=== PATIENT | female | born 1940 | race Caucasian/White ===

== ENCOUNTER 2016-10-25 07:52 | Inpatient (IN) | payer OTHER ==
[2016-10-19 13:47] VITALS: BMI 30.2
[2016-10-25] MEDS ORDERED: ROPIVICAINE 0.2%/MORPH PF/KETOROLAC - 51ML DISP.SYRINGE IA ONE ×2 (08:25→10:36)
[2016-10-25] MEDS ORDERED: CEFAZOLIN 2 GM in DEXTROSE 5%-WATER - 50 ML IVPB ONE (08:25)
[2016-10-25] MEDS ORDERED: TRANEXAMIC ACID 1000 MG/10 ML VIAL IVPUSH ONE ×2 (08:25→16:00)
[2016-10-25] MEDS: GABAPENTIN 300 MG CAPSULE (FP) PO ONE ×2 (09:00→16:10)
[2016-10-25] MEDS: CELECOXIB 200 MG CAPSULE PO ONE ×2 (09:00→16:10)
[2016-10-25] MEDS ORDERED: SODIUM CHLORIDE 0.9% P/F 10 ML VIAL IJ ONE (09:35)
[2016-10-25] MEDS ORDERED: ROPIVACAINE HCL 0.5% 30ML VIAL ONE (09:35)
[2016-10-25] MEDS ORDERED: MIDAZOLAM HCL 2 MG/2 ML SINGLE DOSE VIAL ONE (09:35)
[2016-10-25] MEDS ORDERED: DEXAMETHASONE SOD PHOSPHATE/PF 10 MG/ML SDV ONE (09:35)
[2016-10-25] MEDS ORDERED: BUPIVACAINE HCL/PF 0.5% (5MG/ML) 10 ML VIAL ONE (10:34)
[2016-10-25] MEDS ORDERED: TRANEXAMIC ACID 1000 MG/10 ML VIAL ONE ×3 (10:35→13:00)
[2016-10-25] MEDS ORDERED: VANCOMYCIN 1,000 MG VIAL (RESTRICTED TO ID ONLY) ONE (10:35)
[2016-10-25] MEDS ORDERED: PROPOFOL 20 ML ONE ×2 (10:37)
[2016-10-25] MEDS ORDERED: ONDANSETRON 4 MG/2 ML VIAL ONE (11:21)
[2016-10-25] MEDS ORDERED: DEXAMETHASONE SOD PHOSPHATE 4 MG/1 ML VIAL ONE (11:21)
[2016-10-25] MEDS ORDERED: ceFAZolin SODIUM 1 GM VIAL ONE ×2 (11:21→13:00)
[2016-10-25] MEDS ORDERED: ONDANSETRON 4 MG/2 ML VIAL IVPB PRN (13:55)
[2016-10-25] MEDS ORDERED: MAGNESIUM HYDROX 2400MG/30ML ORAL SUSPENSION 30 ML CUP PO PRN (13:55)
[2016-10-25] MEDS ORDERED: MAG HYDROX/AL HYDROX/SIMETH 30 ML UNIT-DOSE CUP PO PRN (13:55)
[2016-10-25] MEDS ORDERED: diazePAM 5 MG TABLET PO PRN (13:58)
[2016-10-25] MEDS ORDERED: LACTATED RINGERS SOLUTION 1,000 ML IV SCH ×2 (14:00→14:15)
[2016-10-25] MEDS ORDERED: ACETAMINOPHEN 325 MG TABLET (FP) ONE (14:13)
[2016-10-25] MEDS ORDERED: ROPIVACAINE 0.2% 400ML 400 ML ML NR ONE (14:15)
[2016-10-25] MEDS ORDERED: ONDANSETRON 4 MG/2 ML VIAL IVPUSH PRN (14:15)
[2016-10-25] MEDS ORDERED: oxyCODONE HCL 5 MG TABLET PO PRN (14:18)
[2016-10-25] MEDS: ACETAMINOPHEN 325 MG TABLET (FP) PO SCH ×3 (14:45→20:02)
[2016-10-25] MEDS: FERROUS SO4 325 MG TABLET (FP) PO SCH (18:35)
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
[2016-10-25] MEDS: CEFAZOLIN 2 GM/D5W 50 ML IVPB SCH (20:03)
[2016-10-25] MEDS: SENNOSIDES/DOCUSATE COMBO (SENNA PLUS) TABLET (UD) PO SCH (22:15)
[2016-10-25] MEDS: ASCORBIC ACID 500 MG TABLET (FP) PO SCH (22:15)
[2016-10-25] MEDS: GABAPENTIN 300 MG CAPSULE (FP) PO SCH (22:15)
[2016-10-25] MEDS: oxyCODONE HCL 10 MG SUSTAINED ACTING TABLET PO SCH (22:15)
[2016-10-25] MEDS: oxyCODONE HCL 5 MG TABLET PO PRN (22:16)
[2016-10-26] MEDS: ACETAMINOPHEN 325 MG TABLET (FP) PO SCH ×3 (01:18→21:05)
[2016-10-26] MEDS: CEFAZOLIN 2 GM/D5W 50 ML IVPB SCH (04:36)
[2016-10-26] MEDS: oxyCODONE HCL 5 MG TABLET PO PRN (05:03)
[2016-10-26 08:13] LABS: MCH 32.5 pg (25.7-33.7); MCHC 33.1 g/dl (32.0-36.0); MEAN CELL VOLUME 98.1 fl (80-96); MEAN PLT VOLUME 9.4 fl (7.5-11.1); PLATELET COUNT 366 K/MM3 (134-434); RDW 13.6 % (11.6-15.6); WHITE BLOOD COUNT 15.1 K/mm3 (4.0-10.8)
[2016-10-26] MEDS: FERROUS SO4 325 MG TABLET (FP) PO SCH ×2 (08:28→16:52)
[2016-10-26 08:33] LABS: ANION GAP 7 (8-16); CALCIUM 8.8 mg/dl (8.4-10.2); CO2 25 mmol/L (22-28); CREATININE 0.8 mg/dl (0.6-1.3); GLUCOSE,RANDOM 136 mg/dl (74-106)
[2016-10-26] MEDS: RIVAROXABAN 10 MG TABLET PO SCH (10:15)
[2016-10-26] MEDS: CELECOXIB 200 MG CAPSULE PO SCH (10:16)
[2016-10-26] MEDS: DIGOXIN 0.125 MG TABLET (FP) PO SCH (10:16)
[2016-10-26] MEDS: GABAPENTIN 300 MG CAPSULE (FP) PO SCH ×2 (10:16→21:06)
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
[2016-10-26] MEDS: dilTIAZem HCL 30 MG TABLET (FP) PO SCH (10:18)
[2016-10-26] MEDS: oxyCODONE HCL 10 MG SUSTAINED ACTING TABLET PO SCH ×2 (10:18→21:06)
[2016-10-26] MEDS: ASCORBIC ACID 500 MG TABLET (FP) PO SCH ×2 (10:19→21:06)
[2016-10-26] MEDS: CHOLECALCIFEROL (VITAMIN D3) 1,000 UNIT TABLET (FP) PO SCH (10:19)
[2016-10-26] MEDS: ENALAPRIL MALEATE 5 MG TABLET (FP) PO SCH (10:19)
[2016-10-26] MEDS: PANTOPRAZOLE 40 MG TABLET (FP) PO SCH (10:19)
[2016-10-26] MEDS: SENNOSIDES/DOCUSATE COMBO (SENNA PLUS) TABLET (UD) PO SCH ×2 (10:20→21:06)
[2016-10-26] MEDS: MULTIVITAMINS (DAILY MVI) TABLET (FP) PO SCH (10:20)
--- NOTE | 2016-10-26 11:40 | PN ---
Progress Note (short form) - Note Progress Note: 76F POD1 s/p TKR under spinal anesthetic with continuous adductor canal catheter. Pt states that her pain is reasonably well controlled. She had difficulty ambulating at baseline pre-op and will be assessed by physical therapy today. AVSS, pt reports no anesthetic complications. slight leakage around catheter noted, no intervention necessary.
--- NOTE | 2016-10-26 16:39 | OP ---
DATE OF OPERATION: 10/25/2016 SURGEON: Augustine Oviedo MD ASSISTANTS: Mr. Jeffrey Batres, whose skilled surgical assistance was necessary for the retraction and protection of vital structures, for the handling and implementation of precise and delicate surgical instrumentation, as well as the overall safe conveyance of the procedure. ANESTHESIOLOGIST: Hayden Mcintosh MD and TYPE OF ANESTHESIA: A regional anesthesia with adductor canal block with indwelling catheter as well as spinal. PREOPERATIVE DIAGNOSIS: Severe knee osteoarthritis with varus deformity. POSTOPERATIVE DIAGNOSIS: Severe knee osteoarthritis with varus deformity. PROCEDURE: Computer-navigated left total knee replacement. COMPLICATIONS: None. BLOOD LOSS: Approximately 100 mL. HARDWARE USED: [employer] Sigma PCL-retaining knee replacement system with a size 4 narrow Press-Fit femur, a size 3 cemented tibia, 10-mm polyethylene liner. Patella was left un-resurfaced. One bag of DePuy bone cement was used and was prepared in a mixing bowl. Tourniquet was applied but not inflated. Kefzol was given preoperatively for prophylaxis against infection. An additional gram was given at the time of wound closure. One gram of tranexamic acid was given preoperatively. A second gram was given at the time of wound closure. A third gram was given intraarticularly at the time of wound closure. A mixture of Duramorph, Toradol and bupivacaine was instilled into the knee for additional analgesia. INDICATIONS: The patient is a 76-year-old female complaining of severe bilateral knee pain which had been present on and off for quite some time. She had initially been managed by another orthopedist. She had a knee arthroscopy almost 15 years ago. She was initially scheduled for knee replacement in November by another surgeon and she had followed up in the office. She has had cortisone injections and viscosupplementation injection therapy. She has attempted weight loss but her knee symptoms have not been relieved. Her knee pain has been severe on both the right and left sides at some points. She has almost been unable to walk and has appeared in the office at times in a wheelchair. Recently, she has described the pain in both knees as severe. In talking with her pets salesperson, Dr. Lucia, who had started bridge therapy for her while awaiting the surgery, she felt the patient was not a good candidate for bilateral knee replacements. The patient initially felt her right knee was bothering her but more recently, her left knee has become more severely affected. Today, in the preoperative holding area, she is here with her sister. We again reviewed the risks, benefits and alternatives of surgery. The patient said that today, her pain is not horrible but that it was horrible a few days ago. We discussed that she does not have to go through with the surgery if she does not want to. She could still change her mind. The patient said, and her sister agreed, that she has been in severe pain, would like to get her left knee replaced today and at some point in the future, would like to have her right knee replaced, as her quality of life has become terrible and she is in continuous pain without any relief with extensive conservative treatment. They understand the risks, which I again reviewed to include, but not be limited to, infection, stiffness, continued pain, the chance she could have a blood clot that could spread from her legs to her lungs and even cause ; the chance she could have an infection; the chance that should she develop an infection, it would be a complete disaster, necessitating removing her knee, placing her on long-term IV antibiotics, and the chance that should her infection not be curable, she would be left without a knee replacement, and unlikely but possible scenario that should she develop a life-threatening infection, she may require amputation of her leg. The patient understands this. She understands that not all her pain may be relieved in her leg. She has identified her left knee as the operative site for today, which I have signed and which was confirmed by the operating staff, and she agrees to proceed with the planned procedure. DESCRIPTION OF PROCEDURE: After administration of regional anesthetic by the anesthesiologist, the patient was brought in the operating room where spinal anesthetic was administered by the anesthesiologist. A tourniquet was placed high on the left leg, and the left leg was then prepped and draped in the usual sterile manner. A midline incision was made approximately 15 cm in length. The incision was carried down through the subcutaneous tissues onto the extensor mechanism using the electrocautery device and device to maintain hemostasis throughout the procedure. The extensor mechanism was then entered superiorly at the quadriceps tendon, at the junction between the medial and lateral two-thirds, the medial one-third and the lateral two-thirds. The incision was carried down in line with fibers, curving medially around the medial patella, leaving a small cuff of tissue for later reapproximation. The patella was everted. The patient had obvious severe tricompartmental osteoarthritis. The ACL was released. Menisci and osteophytes were removed. Two sets of 4-mm guide pins were then placed in the medial aspect of the proximal tibia and the second set in the medial aspect of the distal femur to which the computer ray was then attached. The hip center of rotation and the patient's bony anatomy were then entered into the computer navigation device. The tibia and then the femur were used to correct the patient's varus deformity to neutral varus/valgus alignment with a trial size 4 narrow femur and a size 3 tibia with a 10-mm polyethylene spacer. The knee had excellent full and easy extension, neutral varus/valgus alignment, balanced flexion and extension gaps with good tracking of the patella with full and easy extension and full and easy flexion. The trial components were then removed. One bag of GIS Clouduy bone cement was then mixed in a vacuum mixing bowl. The exposed bony cancellous surfaces were then prepared using a jet lavage. The cement was then precoated on the tibial component as well as being finger pressurized on the exposed bony cancellous surface of the proximal tibia. The tibial component was then impacted in place. Excess bone cement was removed. The femoral component was then impacted in place. The knee was then held in extension with a trial polyethylene spacer until the cement had hardened. The knee was taken through a range of motion with the trial spacer and found to have equal tracking and stability as well as balanced flexion/extension gaps and neutral varus alignment equal to that of the trial. The final polyethylene spacer was then impacted in place and found to have excellent full and easy extension, full and easy flexion, balanced flexion and extension gaps, neutral varus/valgus alignment with good tracking of the patella. The wounds were then irrigated with copious amounts of antibiotic normal saline solution. Excess bone cement was removed. Any excess bone cement and debris was then removed. A dilute Betadine solution was instilled into the wound and allowed to sit for 3 minutes. This was then evacuated and the wound was irrigated once again with copious amounts of antibiotic normal saline solution. The extensor mechanism was then reapproximated to itself using interrupted No. 1 figure-of-8 Vicryl sutures. This was then followed with No. 1 Stratafix in the extensor mechanism in a whipstitch fashion with the knee in maximal flexion. The subcutaneous tissue was then irrigated once again with copious amounts of antibiotic normal saline solution. One gram of tranexamic acid was instilled in the knee, as well as a pain medication cocktail of Duramorph, ketorolac and bupivacaine. The subcutaneous tissues were then closed with No. 1 and 2-0 Vicryl sutures, and the skin was reapproximated with a No. 3-0 running Stratafix suture with the knee in maximal flexion. The wounds were then further closed with Dermabond. After the Dermabond had hardened, Aquacel dressing was applied and then a thigh-high CHAS stocking was placed on the patient's leg. Of note, during the procedure, a thigh-high CHAS stocking and sequential compression device had been placed on her nonoperative right leg. Postoperatively, we are going to have DVT prophylaxis with early ambulation, Xarelto, which we are going to start within 24 hours of the surgery, sequential compression devices and CHAS stockings. We are going to discontinue prophylactic antibiotics within 24 hours. We are not going to use a Avila catheter if at all possible to help prevent a dreaded urinary tract infection and possible periprosthetic infection. AUGUSTINE OVIEDO M.D. [id number]
[2016-10-27] MEDS: ACETAMINOPHEN 325 MG TABLET (FP) PO SCH ×2 (03:16→09:33)
[2016-10-27 09:02] LABS: MCH 33.2 pg (25.7-33.7); MCHC 33.7 g/dl (32.0-36.0); MEAN CELL VOLUME 98.4 fl (80-96); MEAN PLT VOLUME 9.4 fl (7.5-11.1); PLATELET COUNT 356 K/MM3 (134-434); RDW 13.6 % (11.6-15.6); WHITE BLOOD COUNT 11.8 K/mm3 (4.0-10.8)
[2016-10-27] MEDS: ENALAPRIL MALEATE 5 MG TABLET (FP) PO SCH (09:23)
[2016-10-27] MEDS: CHOLECALCIFEROL (VITAMIN D3) 1,000 UNIT TABLET (FP) PO SCH (09:30)
[2016-10-27] MEDS: CELECOXIB 200 MG CAPSULE PO SCH (09:31)
[2016-10-27] MEDS: SENNOSIDES/DOCUSATE COMBO (SENNA PLUS) TABLET (UD) PO SCH (09:32)
[2016-10-27] MEDS: GABAPENTIN 300 MG CAPSULE (FP) PO SCH (09:32)
[2016-10-27] MEDS: MULTIVITAMINS (DAILY MVI) TABLET (FP) PO SCH (09:32)
[2016-10-27] MEDS: PANTOPRAZOLE 40 MG TABLET (FP) PO SCH (09:33)
[2016-10-27] MEDS: dilTIAZem HCL 30 MG TABLET (FP) PO SCH (09:34)
[2016-10-27] MEDS: RIVAROXABAN 10 MG TABLET PO SCH (09:35)
[2016-10-27] MEDS: oxyCODONE HCL 10 MG SUSTAINED ACTING TABLET PO SCH (09:36)
[2016-10-27] MEDS: FERROUS SO4 325 MG TABLET (FP) PO SCH (09:37)
[2016-10-27 09:38] VITALS: PULSE 80
[2016-10-27] MEDS: DIGOXIN 0.125 MG TABLET (FP) PO SCH (09:38)
[2016-10-27 09:39] VITALS: BP 134/90; TEMP 97.8
--- NOTE | 2016-10-27 09:47 | PN ---
Progress Note (short form) - Note Progress Note: ANESTHESIOLOGY POST-OP CHECK POD #2 after left TKR with adductor canal catheter. Denies numbness, weakness. Pain minimal at rest. Adductor canal catheter removed - tip intact. Continue management as per primary team.
[2016-10-27] MEDS: ASCORBIC ACID 500 MG TABLET (FP) PO SCH (12:17)
--- NOTE | 2016-10-27 15:15 | PATH ---
Surgical Pathology Report Patient Name: GUANACO LYNCH Med. Rec. #: [id number] /Age/Gender: 1940 (Age: 76) / F Account: [id number] Location: [facility] MED-SURG Taken: 10/25/2016 Received: 10/25/2016 Reported: 10/27/2016 Physicians: Tod Mora M.D. Specimen(s) Received LEFT KNEE BONES Clinical History Unilateral primary osteoarthritis Final Diagnosis BONE AND SOFT TISSUE, LEFT KNEE, REPLACEMENT: DEGENERATIVE JOINT DISEASE. Electronically Signed Donny Raymundo M.D. Gross Description Received in formalin labeled "left knee bones," is an 11.0 x 9.0 x 1.5 cm aggregate of multiple monae, irregular portions of bone and soft tissue. The tibial plateau measures 7.0 x 4.8 x 2.0 cm. There is a 0.9 cm in greatest dimension area of eburnation present. The remaining articular surfaces are monae-yellow and focally granular. The underlying trabecular bone is yellow and hard. Music Assistant sections are submitted in one cassette, following decalcification. 10/26/201610/26/2016
== END 2016-10-27 13:30 | DRG 470 ==
LOC: FM/S 07:52
PROVIDERS: ADMIT Orthopaedic Surgery; ATTEND Orthopaedic Surgery
PROC: 8E0YXBZ Computer Assisted Procedure of Lower Extremity (ICD-10-PCS; 2016-10-25)
PROC: 0SRD0J9 Replacement of Left Knee Joint with Synthetic Substitute, Cemented, Open Approach (ICD-10-PCS; principal; 2016-10-25 12:04)
DX: M17.12 Unilateral primary osteoarthritis, left knee (principal); J44.9 Chronic obstructive pulmonary disease, unspecified; J45.909 Unspecified asthma, uncomplicated; I48.91 Unspecified atrial fibrillation; M19.042 Primary osteoarthritis, left hand; M19.041 Primary osteoarthritis, right hand; K21.9 Gastro-esophageal reflux disease without esophagitis; I10 Essential (primary) hypertension; E78.5 Hyperlipidemia, unspecified; Z96.652 Presence of left artificial knee joint; Z87.891 Personal history of nicotine dependence
CPT/HCPCS: 36415; 73560-TC-LT; 80048; 85027; 88305-TC; 88311-TC; 94010; 94760; 97116-GP; 97162-GP